=== PATIENT | female | born 1935 | race Caucasian/White ===

== ENCOUNTER 2020-09-20 09:11 | Emergency (ER) | payer MEDICARE, OTHER ==
[~2020-09-20] VITALS: Ht 165.1 cm; Wt 116.8 kg
[2020-09-20] MEDS ORDERED: IV NORMAL SALINE 1,000ML 1,000 ML IV SCH (09:17)
--- NOTE | 2020-09-20 09:27 | PHYS DOC ---
Past History Past Medical History: Anxiety, Depression, Diabetes, Fibromyalgia, Hypertension, Hypothyroid Past Surgical History: Hysterectomy Smoking: Non-smoker Alcohol Use: None General Adult EDM: Chief Complaint: SHORTNESS OF BREATH HPI: HPI: Patient is an 85 year old female who presents via EMS for evaluation of moderate to severe shortness of air, respiratory distress and hypoxia. Patient's initial sats were 80% on room air prior to EMS arrival. On 6 L she improved to about 88% and on a nonrebreather was up to 98%. Patient lives at a local extended care facility. Patient has no known chronic lung problems. There has been no known exposure to Covid at her facility. Patient has moderate conversational dyspnea and obvious tachypnea on arrival. Patient is DNR. Risk factors include hypertension and diabetes as well as obesity. Review of Systems: Review of Systems: Constitutional: Denies fever or chills Eyes: Denies change in visual acuity HENT: Denies nasal congestion or sore throat Respiratory: Denies cough has shortness of breath Cardiovascular: Denies chest pain has edema GI: chronic abdominal pain, with nausea, no vomiting, bloody stools or diarrhea : Denies dysuria Musculoskeletal: chronic back pain and joint pain Integument: Denies rash Neurologic: Denies headache, focal weakness or sensory changes Endocrine: Denies polyuria or polydipsia Lymphatic: Denies swollen glands Psychiatric: chronic depression and anxiety Current Medications: Current Meds: Current Medications Medications (Trade) Dose Ordered Sig/Rajesh Start Time Stop Time Status Last Admin Dose Admin Sodium Chloride 1,000 ml @ 100 mls/hr Q10H 09/20/20 09:17 09/20/20 19:16 UNV Physical Exam: PE: Constitutional: Well developed, well nourished, moderate acute distress and is toxic appearance. [] HENT: Normocephalic, atraumatic, bilateral external ears normal, oropharynx moist, no oral exudates, nose normal. [] Eyes: PERRL, EOMI, conjunctiva normal, no discharge. [] Neck: Normal range of motion, no tenderness, supple, no stridor. [] Cardiovascular:Heart rate regular rhythm, murmur [] Lungs & Thorax: Bilateral breath sounds diminished bilaterally, wheezing present [] Abdomen: Bowel sounds normal, soft, diffuse tenderness, no masses, obesse. [] Skin: Warm, dry, no erythema, no rash. [] Back: No tenderness. [] Extremities: No tenderness, no cyanosism, ROM intact, edema is present. [] Neurologic: Alert and oriented X 3, normal motor function, normal sensory function, no focal deficits noted. [] Psychologic: Affect normal, judgement normal, mood normal. [] Current Patient Data: Labs: 7.38, PCO2 57, PO2 79, bicarb 33, O2 sat 95% on 4 L Vital Signs: Laboratory Tests Test 09/20/20 09:30 09/20/20 09:45 White Blood Count 44.2 x10^3/uL Red Blood Count 3.39 x10^6/uL Hemoglobin 10.0 g/dL Hematocrit 31.7 % Mean Corpuscular Volume 93 fL Mean Corpuscular Hemoglobin 29 pg Mean Corpuscular Hemoglobin Concent 31 g/dL Red Cell Distribution Width 15.9 % Platelet Count 265 x10^3/uL Neutrophils (%) (Auto) 56 % Lymphocytes (%) (Auto) 2 % Monocytes (%) (Auto) 42 % Eosinophils (%) (Auto) 0 % Basophils (%) (Auto) 0 % Neutrophils # (Auto) 24.9 x10^3uL Lymphocytes # (Auto) 0.7 x10^3/uL Monocytes # (Auto) 18.4 x10^3/uL Eosinophils # (Auto) 0.1 x10^3/uL Basophils # (Auto) 0.1 x10^3/uL Platelet Estimate Pending Sodium Level 135 mmol/L Potassium Level 3.5 mmol/L Chloride Level 95 mmol/L Carbon Dioxide Level 31 mmol/L Anion Gap 9 Blood Urea Nitrogen 27 mg/dL Creatinine 2.2 mg/dL Estimated GFR (Cockcroft-Gault) 21.2 BUN/Creatinine Ratio 12 Glucose Level 134 mg/dL Lactic Acid Level 1.7 mmol/L Calcium Level 9.1 mg/dL Total Bilirubin 1.0 mg/dL Aspartate Amino Transf (AST/SGOT) 41 U/L Alanine Aminotransferase (ALT/SGPT) 36 U/L Alkaline Phosphatase 112 U/L Troponin I Quantitative < 0.017 ng/mL HH-Exm-P-Type Natriuretic Peptide 2920 pg/mL Total Protein 6.7 g/dL Albumin 2.8 g/dL Albumin/Globulin Ratio 0.7 Blood Gas pH 7.38 Blood Gas PCO2 57 mmHg Blood Gas PO2 79 mmHg Blood Gas HCO3 34 mmol/L Arterial Bld O2 Saturation (Calc) 95 % FiO2 36 % Current Medications Medications (Trade) Dose Ordered Sig/Rajesh Route PRN Reason Start Time Stop Time Status Last Admin Dose Admin Sodium Chloride 1,000 ml @ 100 mls/hr Q10H IV 09/20/20 09:17 09/20/20 19:16 09/20/20 09:43 EKG: EKG: EKG is normal sinus rhythm, rate 85, leftward axis, artifact present lead V1, no evidence of STEMI, read at 1020, repeat EKG done a few minutes later shows normal sinus rhythm, not STEMI rate 80 [] Radiology/Procedures: Radiology/Procedures: [place] [address] IMAGING REPORT Signed PATIENT: ROSARIO CALDERON MACCOUNT: [id number] : 1935 LOCATION: ER AGE: 85 SEX: F EXAM STATUS: REG ER ORD. PHYSICIAN: VALERIA SULLIVAN DO REASON: short of air PROCEDURE: PORTABLE CHEST 1V PORTABLE CHEST 1V History: Shortness of air Comparison: None. Findings: Single view of the chest is submitted. There are low lung volumes. There is atherosclerotic calcification greater near aortic arch. Pericardial cardiac silhouette is borderline enlarged. There is no pneumothorax or significant dependent pleural fluid. No lobar infiltrate is identified. There may be mild interstitial opacity near the lung bases greater on the left although poorly evaluated due to low lung volumes. There is perihilar bronchial wall thickening. There is degenerative change of the acromioclavicular joints bilaterally. Impression: 1. There is perihilar bronchial wall thickening which can be associated with atypical or viral infectious etiologies or reactive airway disease. There is some mostly interstitial opacity near left lung base which could be infiltrate or edema. Electronically signed by: Benito Espinoza MD (09/20/2020 10:01 AM) [id number] DICTATED AND SIGNED BY: BENITO ESPINOZA MD DATE: 09/20/20 1001 CC: PCP,NO; VALERIA SULLIVAN DO ~ [] Heart Score: Risk Factors: Risk Factors: DM, Current or recent (<one month) smoker, HTN, HLP, family hist ory of CAD, obesity. Risk Scores: Score 0 - 3: 2.5% MACE over next 6 weeks - Discharge Home Score 4 - 6: 20.3% MACE over next 6 weeks - Admit for Clinical Observation Score 7 - 10: 72.7% MACE over next 6 weeks - Early Invasive Strategies Course & Med Decision Making: Course & Med Decision Making Pertinent Labs and Imaging studies reviewed. (See chart for details) [] Dragon Disclaimer: Dragon Disclaimer: This electronic medical record was generated, in whole or in part, using a voice recognition dictation system. 1001 stable, ABG just drawn on 4 L nasal cannula. Patient is on 2 L at baseline at night. Respiratory distress somewhat improving at this time. 1103 Case was discussed with Dr. Whitfield who will accept patient to [facility] for admission. Patient likely is in congestive heart failure but also has a critically elevated white blood cell count. This could be due to underlying infection versus a blood disorder such as myeloma. Patient will be sent to a telemetry bed. They do not currently have a bed available. 1141 [facility] patient's DPOA has requested [facility]. Patient primary care provider is Dr. Sanchez who normally uses those facilities. Pt is stable and resting comfortably at this time. 1148 [facility] transfer line called to discuss case to see about transfer as requested. 1204 Dr. Ashlee Pinto is the accepting physician likely to [facility]. They are working on a bed now. We will add Zithromax for pneumonia coverage. Lactic acid is normal Departure Departure: Impression: Primary Impression: Acute congestive heart failure Qualified Codes: I50.9 - Heart failure, unspecified Additional Impressions: Leukocytosis Qualified Codes: D72.829 - Elevated white blood cell count, unspecified Hypoxia Dyspnea Pulmonary infiltrate Disposition: 02 DC/TRF OTHER SHORT TERM HOS Admitting Physician: Rasheed Whitfield (Dr. Ashlee Pinto to [facility]) Condition: STABLE Critical Care Time Critical care time was 31 minutes exclusive of procedures. This included interpretation of x-ray results, lab results, talking to accepting physician and transfer to another hospital. Patient will need consult with lamp stack developer VALERIA SULLIVAN DO Sep 20, 2020 09:27
--- NOTE | 2020-09-20 10:04 | RAD ---
PORTABLE CHEST 1V History: Shortness of air Comparison: None. Findings: Single view of the chest is submitted. There are low lung volumes. There is atherosclerotic calcification greater near aortic arch. Pericardial cardiac silhouette is borderline enlarged. There is no pneumothorax or significant dependent pleural fluid. No lobar infiltrate is identified. There may be mild interstitial opacity near the lung bases greater on the left although poorly evaluated due to low lung volumes. There is perihilar bronchial wall thickening. There is degenerative change of the acromioclavicular joints bilaterally. Impression: 1. There is perihilar bronchial wall thickening which can be associated with atypical or viral infectious etiologies or reactive airway disease. There is some mostly interstitial opacity near left lung base which could be infiltrate or edema. Electronically signed by: Benjamín Renae MD (09/20/2020 10:01 AM) [id number]
[2020-09-20 10:06] LABS: HEMATOCRIT 31.7 % (36.0-47.0); MEAN CORPUSCULAR HEMOGLOBIN 29 pg (25-35); MEAN CORPUSCULAR HGB CONC 31 g/dL (31-37); MEAN CORPUSCULAR VOLUME 93 fL (79-100); PLATELET COUNT 265 x10^3/uL (140-400); RED BLOOD COUNT 3.39 x10^6/uL (3.50-5.40); RED CELL DISTRIBUTION WIDTH 15.9 % (11.5-14.5)
[2020-09-20 10:14] LABS: BGAS PH 7.38 (7.35-7.45)
[2020-09-20 10:14] LABS: CALCIUM 9.1 mg/dL (8.5-10.1); CREATININE 2.2 mg/dL (0.6-1.0); GFR 21.2; POTASSIUM 3.5 mmol/L (3.5-5.1)
[2020-09-20 10:19] LABS: WHITE BLOOD COUNT 44.2 x10^3/uL (4.0-11.0)
[2020-09-20 10:27] LABS: ALBUMIN 2.8 g/dL (3.4-5.0); ALBUMIN/GLOBULIN RATIO 0.7 (1.0-1.7); TOTAL PROTEIN 6.7 g/dL (6.4-8.2)
--- NOTE | 2020-09-20 10:55 | EKG ---
[address] [address] Test Date: 2020-09-20 Test Time: 10:21:19 Pat Name: ROSARIO CALDERON Department: Room: Gender: F [employer]: MARIA ELENA : 1935 Requested By: VALERIA SULLIVAN Order Number: [id number] Reading MD: Measurements Intervals [place] Rate: 80 P: 38 SD: 158 QRS: 0 QRSD: 88 T: 67 QT: 388 QTc: 451 Interpretive Statements SINUS RHYTHM LEFTWARD AXIS QRS(T) CONTOUR ABNORMALITY CONSIDER INFERIOR INFARCT POSSIBLY ABNORMAL ECG RI6.02 No previous ECG available for comparison
[2020-09-20] MEDS ORDERED: FUROSEMIDE 40 MG/4 ML VIAL IVP ONE (11:15)
[2020-09-20 11:18] LABS: % LYMPHS 6 % (24-48); % MONOS 16 % (0-10); % SEGS 78 % (35-66)
[2020-09-20 11:22] LABS: ANISOCYTOSIS SLIGHT; PLT ESTIMATE ADEQUATE (ADEQUATE)
[2020-09-20] MEDS ORDERED: cefTRIAXone SODIUM 1 GM VIAL ONE (12:04)
[2020-09-20] MEDS ORDERED: IV NORMAL SALINE 50ML 50 ML ONE (12:04)
[2020-09-20] MEDS ORDERED: AZITHROMYCIN 500 MG in IV NORMAL SALINE 250ML 250 ML IV ONE (12:15)
[2020-09-20] MEDS ORDERED: IV NORMAL SALINE 250ML 250 ML ONE (13:02)
[2020-09-20] MEDS ORDERED: AZITHROMYCIN 500 MG VIAL. IV ONE (13:02)
[2020-09-20 13:05] VITALS: BP 108/71
--- NOTE | 2020-09-24 12:25 | NUR ---
IP: notified nurse at [facility] of COVID result.
== END 2020-09-20 13:45 | disposition short-term general hospital (02) ==
LOC: ER 09:11
DX: I50.9 Heart failure, unspecified (principal); Z20.828 Contact with and (suspected) exposure to other viral communicable diseases; R91.8 Other nonspecific abnormal finding of lung field; D72.829 Elevated white blood cell count, unspecified; R06.00 Dyspnea, unspecified; R06.02 Shortness of breath; R09.02 Hypoxemia; F41.9 Anxiety disorder, unspecified; F32.9 Major depressive disorder, single episode, unspecified; E11.9 Type 2 diabetes mellitus without complications; M79.7 Fibromyalgia; I10 Essential (primary) hypertension; E03.9 Hypothyroidism, unspecified; Z90.710 Acquired absence of both cervix and uterus
CPT/HCPCS: 36415; 71045; 80053; 82803; 83605; 83880; 84484; 85007; 85025; 87040; 93005; 96361; 96365; 96367; 96375; 99291; C9803; J0456; J0696; J1940; J7030; J7050; U0003